=== PATIENT | male | born 1975 | race African-American/Black ===

== ENCOUNTER 2019-04-17 16:25 | Emergency (ER) | payer OTHER ==
[~2019-04-17] VITALS: Ht 172.7 cm; Wt 66.7 kg
[2019-04-17 16:34] VITALS: BP 152/100; Ht 172.7 cm; Wt 66.7 kg
== END 2019-04-17 17:39 | disposition home or self-care (01) ==
LOC: ED 16:25
DX: S61.011D Laceration without foreign body of right thumb without damage to nail, subsequent encounter (principal); S61.210D Laceration without foreign body of right index finger without damage to nail, subsequent encounter; S61.212D Laceration without foreign body of right middle finger without damage to nail, subsequent encounter; X58.XXXD Exposure to other specified factors, subsequent encounter

== ENCOUNTER 2019-08-01 14:30 | Emergency (ER) | payer OTHER ==
[~2019-08-01] VITALS: Ht 172.7 cm; Wt 90.3 kg
[2019-08-01 14:37] VITALS: BP 174/116; Ht 172.7 cm; Wt 90.3 kg
== END 2019-08-01 15:01 | disposition home or self-care (01) ==
LOC: ED 14:30
DX: Z45.2 Encounter for adjustment and management of vascular access device (principal); I10 Essential (primary) hypertension

== ENCOUNTER 2019-08-16 09:20 | Emergency (ER) | payer OTHER ==
[~2019-08-16] VITALS: Ht 172.7 cm; Wt 68.0 kg
[2019-08-16 09:31] VITALS: Ht 172.7 cm; Wt 68.0 kg
[2019-08-16 10:17] LABS: BASOPHIL % 0.1 % (0-2); PLATELET COUNT 170 x10^3mcL (130-400)
[2019-08-16 10:21] LABS: RED CELL DISTRIBUTION WIDTH 14.8 % (11.5-14.5)
[2019-08-16 11:45] VITALS: BP 147/79
== END 2019-08-16 11:45 | disposition home or self-care (01) ==
LOC: ED 09:20
PROVIDERS: Emergency Medicine
DX: L02.414 Cutaneous abscess of left upper limb (principal); I10 Essential (primary) hypertension; Z98.890 Other specified postprocedural states
CPT/HCPCS: 36415; J0696; Q0092